=== PATIENT | male | born 1960 | race Caucasian/White ===

== ENCOUNTER 2016-07-19 07:28 | Emergency (ER) | payer OTHER | END 2016-07-19 14:20 | disposition left against medical advice (07) | LOC: ER 07:28 | DX: K74.60 Unspecified cirrhosis of liver (principal); R09.02 Hypoxemia; E11.9 Type 2 diabetes mellitus without complications | CPT/HCPCS: 36415; 96361; 96374; 96375; 96376; J2550; Q9967 ==

== ENCOUNTER 2016-07-19 15:00 | Emergency (ER) | payer OTHER | END 2016-07-19 19:20 | disposition short-term general hospital (02) | LOC: ER 15:00 | DX: K74.60 Unspecified cirrhosis of liver (principal); R09.02 Hypoxemia; E11.9 Type 2 diabetes mellitus without complications | CPT/HCPCS: 96361; 96374; J2550 ==